=== PATIENT | female | born 1965 | race Two or more races ===

== ENCOUNTER 2018-01-23 08:02 | Day surgery (SDC) | END 2018-01-23 12:07 | disposition home or self-care (01) ==

== ENCOUNTER 2018-11-19 14:35 | Day surgery (SDC) | payer OTHER ==
[2018-11-19] VITALS (11 sets, daily range): BP systolic 127–151; BP diastolic 67–83; PULSE 63–80; RESP 15–20; Ht 154.9 cm; Wt 59.0 kg
[~2018-11-19] VITALS: Ht 154.9 cm; Wt 59.0 kg
[~2018-11-19 14:35] MED LIST: CEFAZOLIN 1 GM INJ ONE; DESFLURANE 15 MIN ONE
[2018-11-19] MEDS ORDERED: LACTATED RINGER'S 1,000 ML IV SCH (15:30)
--- NOTE | 2018-11-19 16:40 | PREAC ---
Date/Time of Note Date/Time of Note DATE: 11/19/18 TIME: 16:37 Anesthesia Eval and Record Evaluation Time Pre-Procedure Interview DATE: 11/19/18 TIME: 16:37 Age 53 Sex female NPO: 8 hrs Preoperative diagnosis Right foot Instability Planned procedure Right foot lateral stabilization Past Medical History Past Medical History: Includes Cardio: HTN, Other (cleared by CV. EF55%) Surgery & Anesthesia Issues No known issue Meds Anticoagulation: No Beta Theo within 24 hr: No Reason Beta Theo not given: Pt. not on B-Theo Reported Medications [none] No Conflict Check 01/23/18 Current Medications Lactated Ringer's 1,000 ml @ 25 mls/hr Q24H IV Last administered on 11/19/18at 15:50; Admin Dose 25 MLS/HR; Start 11/19/18 at 15:30 Meds reviewed: Yes Allergies Coded Allergies: No Known Allergy (Unverified , 01/23/18) Allergies Reviewed: Yes Labs/Studies Labs Reviewed: Reviewed by anesthesiologist test: N/A Pre-procedure Exam Last vitals Vital Signs Date Temp Pulse Resp B/P (MAP) Pulse Ox O2 O2 Flow FiO2 Time Delivery Rate 11/19/18 97.8 63 18 146/75 99 Room Air 15:39 (98) Airway: Adequate mouth opening Mallampati: Mallampati II Teeth: Normal Lung: Normal Heart: Normal ASA Physical Status ASA physical status: 2 Emergency: None Planned Anesthetic General/MAC: LMA Nerve block: Femoral (right), Sciatic (right) Pre-operative Attestations Prior to commencing anesthesia and surgery, the patient was re-evaluated, there was verification of: *The patient's identity *The results of appropriate recent lab work and preoperative vital signs *The above evaluation not changing prior to induction *Anesthetic plan, risk benefits, alternative and complications discussed with patient/family; questions answered; patient/family understands, accepts and wishes to proceed. AMINA CARMONA MD Nov 19, 2018 16:40
[2018-11-19] MEDS ORDERED: PROPOFOL 20 ML ONE (17:00)
[2018-11-19] MEDS ORDERED: METOCLOPRAMIDE 10 MG INJ ONE (17:01)
[2018-11-19] MEDS ORDERED: ROPIVACAINE 0.5 % 30 ML VIAL ONE (17:01)
[2018-11-19] MEDS ORDERED: ONDANSETRON 4 MG INJ ONE (17:01)
[2018-11-19] MEDS ORDERED: MIDAZOLAM 1 MG/ML 2 ML INJ ONE (17:01)
[2018-11-19] MEDS ORDERED: KETOROLAC 30 MG INJ ONE (17:02)
--- NOTE | 2018-11-19 17:06 | HPN ---
Date/Time of Note Date/Time of Note DATE: 11/19/18 TIME: 17:05 Interval H&P Admission Note Pt. seen H&P reviewed: No system changes ERICK PARSONS DPM Nov 19, 2018 17:06
[2018-11-19] MEDS ORDERED: FENTAnyl 50 MCG/ML VIAL ONE (17:27)
[2018-11-19] MEDS ORDERED: POLYMYXIN/BACITRACIN 1L IRRIG ONE (17:51)
[2018-11-19] MEDS ORDERED: SIMV20TA20 PO (18:15)
[2018-11-19] MEDS ORDERED: GABA100C PO (18:15)
[2018-11-19] MEDS ORDERED: LOSA50TA14 PO (18:15)
[2018-11-19] MEDS ORDERED: BUPIVACAINE 0.5% (SDV) 30 ML INJ ONE (18:36)
--- NOTE | 2018-11-19 18:56 | SIPON ---
Date/Time of Note Date/Time of Note DATE: 11/19/18 TIME: 18:54 Operative Report Preoperative Diagnosis Rupture right ankle anterior fibular talar ligament. Postoperative Diagnosis Rupture right ankle anterior fibular talar ligament Operation/Procedure Performed right lateral ankle stabilization with internal brace Surgeon see signature line medical assisting program director none Anesthesia: general Estimated blood loss: none Transfusion Required none Specimen none Grafts/Implants none Complications none ERICK PARSONS DPM Nov 19, 2018 18:56
--- NOTE | 2018-11-20 14:27 | PAC ---
Date/Time of Note Date/Time of Note DATE: 11/20/18 TIME: 14:27 Post-Anesthesia Notes Post-Anesthesia Note Last documented vital signs Vital Signs Date Temp Pulse Resp B/P (MAP) Pulse Ox O2 O2 Flow FiO2 Time Delivery Rate 11/19/18 98.1 70 20 151/67 98 Room Air 19:43 (95) 11/19/18 98.1 19:02 Activity: WNL Respiratory function: WNL Cardiovascular function: WNL Mental status: Baseline Pain reasonably controlled: Yes Hydration appropriate: Yes Nausea/Vomiting absent: No BRIAN VALDIVIA MD Nov 20, 2018 14:27
--- NOTE | 2018-11-26 14:34 | OPR ---
DATE OF OPERATION: 11/19/2018 SURGEON: Erick Hogan DPM. ANESTHESIA: General. PREOPERATIVE DIAGNOSIS: Rupture of the anterior fibular talar ligament, right ankle. POSTOPERATIVE DIAGNOSIS: Rupture of the anterior fibular talar ligament, right ankle. PROCEDURE PERFORMED: Lateral ankle stabilization of the right ankle. DESCRIPTION OF PROCEDURE: The patient was brought into the operating room and placed on the table in a secure supine position. Cardiac monitoring and general anesthesia were utilized for this case. P reoperatively, a total of 10 mL of 0.5% Marcaine plain were infiltrated into the right ankle in the f orm of an ankle block for postoperative pain management. Next, the right foot and ankle were prepped and draped in the usual sterile manner. A thigh pneumatic tourniquet was utilized and was inflated to 300 mmHg. Procedure #1 was then performed. Lateral ankle stabilization with Arthrex internal bra ce. A 4 cm incision was placed over the sinus tarsi of the lateral foot just below the lateral malle olus. The incision was deepened. The extensor digitorum brevis muscle belly was reflected from its origin site distally. The incision was deepened through the sinus tarsi, the fat tissue was removed. The superficial bleeders were cauterized and bovied as necessary. The deep fascia tissue was refle cted from the distal fibula as well as from the body of the talus. The appropriate drill holes were performed into the distal fibula, anchoring the Arthrex sutures. Next, a drill hole size 3.4 mm dril l was drilled into the lateral surface of the talus in the nonarticular aspect at 40 degrees angle. Care was taken with intraoperative fluoroscopy to make sure the joint was not involved. The anchor w as secured to the body of the talus. At this point, a modified Brostrom procedure was performed with a deep tissue anchoring from the fibula to the talus. Next, the internal brace was secured with the appropriate technique and anchor. The foot was held in neutral position while the internal brace wa s secured. Good stability was noted. At the right ankle surgical site was irrigated with sterile sa line mixed with bacitracin solution. The internal brace was found to be satisfactory. The surgical site was irrigated with sterile saline solution. Subcutaneous tissue was closed with 3-0 and 4-0 Keyon ryl simple interrupted sutures. The skin edges were reapproximated with a running 3-0 Prolene subcut icular stitch. Dressing consisted of Xeroform gauze, 4 x 4 gauze, 4-inch Kerlix roll and quarter inc h Steri-Strips. The patient tolerated the above procedure well, left the OR with vital signs stable and satisfactory. Immediate hyperemia was noted to all digits of the right foot upon deflating the t high tourniquet. The patient was placed in a posterior splint upon leaving the operating room. The patient will follow up 1 week postop. Dictated By: ERICK MALONE/JENNIFER Conf#: [id number] DID#: [id number]
== END 2018-11-19 20:15 | disposition home or self-care (01) ==
LOC: SDS 14:35
PROVIDERS: ATTEND Podiatrist Primary Podiatric Medicine
DX: S93.491D Sprain of other ligament of right ankle, subsequent encounter (principal); X58.XXXD Exposure to other specified factors, subsequent encounter; I10 Essential (primary) hypertension
CPT/HCPCS: 27870; 73610; 84703; J0690; J1885; J2250; J2405; J2765; J2795; J3010; Z7512; Z7610